=== PATIENT | male | born 1955 | race Caucasian/White ===

== ENCOUNTER → 2017-12-13 | Outpatient (CLI) | payer OTHER ==
[~2017-12-13] MED LIST: ACET325 PO; ACET500 PO; ALPR.25 PO; AMLO5 PO; Ativan1 MG PO; CALMAGZIN PO; CITA20 PO; ERYT500 PO; FERR325 PO; HYDACE10B PO; IRON150C PO; LEVSOD25 PO; LEVSOD50 PO; LORA1 PO; LOSHYD PO; LOTE.2OPSU; LOTE.5SUSP BOTHEYES; OXYC5 PO; Omeprazole20 M1; PRED10 PO; Prozac20 MG; SODCHL1 PO; SULI200 PO
[2017-12-13 18:38] LABS: BASOPHILS ABSOLUTE AUTO 0.06 K/mm3 (0.00-0.23); BASOPHILS PERCENT AUTO 1 % (0-2); EOSINOPHILS PERCENT AUTO 2 % (0-6); Hemoglobin 14.6 g/dL (13.5-17.5); IMMATURE GRAN ABSOLUTE AUTO 0.01 K/mm3 (0.00-0.10); IMMATURE GRAN PERCENT AUTO 0 % (0-1); LYMPHOCYTES ABSOLUTE AUTO 1.69 K/mm3 (0.84-5.20); LYMPHOCYTES PERCENT AUTO 25 % (21-46); MONOCYTES ABSOLUTE AUTO 0.54 K/mm3 (0.16-1.47); MONOCYTES PERCENT AUTO 8 % (4-13); Mean Corpuscular HGB 34.7 pg (26.0-34.0); Mean Corpuscular HGB Conc 36.5 g/dL (31.5-36.5); Mean Corpuscular Volume 95 fL (80-100); Mean Platelet Volume 9.4 fL (9.1-12.4); NEUTROPHILS ABSOLUTE AUTO 4.41 K/mm3 (1.96-9.15); NEUTROPHILS PERCENT AUTO 65 % (41-73); Platelet Count 212 K/mm3 (150-400); RDW Coefficient Variation 12.4 % (11.7-14.2); RDW Standard Deviation 43.2 fL (35.1-46.3); Red Blood Cell Count 4.21 M/mm3 (4.30-5.90); White Blood Cell Count 6.81 K/mm3 (4.00-11.30)
[2017-12-13 18:51] LABS: Albumin, Blood 4.3 g/dL (3.4-5.0); Bilirubin, Total 0.6 mg/dL (0.1-1.0); Bun/Creatinine Ratio 8.1 (12.0-20.0); Creatinine, Blood 1.61 mg/dL (0.60-1.20); Globulin, Blood 4.1 g/dL (2.2-4.0); Potassium, Blood 3.9 mmol/L (3.5-5.5); Total Protein, Blood 8.4 g/dL (6.4-8.2)
== END | disposition home or self-care (01) ==
LOC: LAB SHORT 18:35 → LAB EV 18:35
PROVIDERS: Physician Assistant
DX: R41.0 Disorientation, unspecified (principal)
CPT/HCPCS: 80053; 85025

== ENCOUNTER → 2018-01-22 | Outpatient (CLI) | payer OTHER ==
[2018-01-23 13:21] LABS: Stool Occult Bld Immuno 1 Negative (NEGATIVE); Stool Occult Bld Immuno 2 Negative (NEGATIVE); Stool Occult Bld Immuno 3 Negative (NEGATIVE)
== END | disposition home or self-care (01) ==
LOC: LAB SHORT 14:04 → LAB 14:04 → LAB FUT 01-18 10:05
PROVIDERS: Nurse Practitioner Family
DX: Z00.01 Encounter for general adult medical examination with abnormal findings (principal); Z12.11 Encounter for screening for malignant neoplasm of colon
CPT/HCPCS: G0328

== ENCOUNTER → 2018-02-27 | Outpatient (CLI) | payer OTHER ==
[2018-02-27 10:30] LABS: BASOPHILS ABSOLUTE AUTO 0.04 K/mm3 (0.00-0.23); BASOPHILS PERCENT AUTO 1 % (0-2); EOSINOPHILS ABSOLUTE AUTO 0.09 K/mm3 (0.00-0.68); EOSINOPHILS PERCENT AUTO 1 % (0-6); Hematocrit 39.9 % (37.0-53.0); Hemoglobin 14.7 g/dL (13.5-17.5); IMMATURE GRAN ABSOLUTE AUTO 0.02 K/mm3 (0.00-0.10); IMMATURE GRAN PERCENT AUTO 0 % (0-1); LYMPHOCYTES ABSOLUTE AUTO 1.17 K/mm3 (0.84-5.20); LYMPHOCYTES PERCENT AUTO 16 % (21-46); MONOCYTES ABSOLUTE AUTO 0.71 K/mm3 (0.16-1.47); MONOCYTES PERCENT AUTO 10 % (4-13); Mean Corpuscular HGB 35.7 pg (26.0-34.0); Mean Corpuscular HGB Conc 36.8 g/dL (31.5-36.5); Mean Corpuscular Volume 97 fL (80-100); Mean Platelet Volume 9.7 fL (9.1-12.4); NEUTROPHILS ABSOLUTE AUTO 5.47 K/mm3 (1.96-9.15); NEUTROPHILS PERCENT AUTO 73 % (41-73); Platelet Count 224 K/mm3 (150-400); RDW Standard Deviation 42.5 fL (35.1-46.3); Red Blood Cell Count 4.12 M/mm3 (4.30-5.90)
[2018-02-27 10:51] LABS: Albumin, Blood 3.9 g/dL (3.4-5.0); Albumin/Globulin Ratio 0.9 (0.8-1.8); Bilirubin, Total 0.7 mg/dL (0.1-1.0); Calcium, Blood 8.5 mg/dL (8.5-10.1); Creatinine, Blood 1.5 mg/dL (0.60-1.20); Globulin, Blood 4.2 g/dL (2.2-4.0); Potassium, Blood 4.1 mmol/L (3.5-5.5); Total Protein, Blood 8.1 g/dL (6.4-8.2); Uric Acid, Blood 7.6 mg/dL (3.5-7.2)
== END | disposition home or self-care (01) ==
LOC: LAB SHORT 10:26 → LAB EV 10:26
PROVIDERS: General Practice
DX: M10.9 Gout, unspecified (principal)
CPT/HCPCS: 80053; 84550; 85025; 85651

== ENCOUNTER → 2018-03-01 | Outpatient (CLI) | payer OTHER ==
[2018-03-02 14:29] LABS: Creatinine Urine 78.3 mg/dL (27.00-270.00); Uric Acid, Urine 20.3 mg/dL (7.5-49.5)
== END | disposition home or self-care (01) ==
LOC: LAB 12:32 → LAB SHORT 12:32
PROVIDERS: General Practice
DX: M10.9 Gout, unspecified (principal)
CPT/HCPCS: 81050; 82570; 84560

== ENCOUNTER 2020-11-16 20:40 | Inpatient (IN) | payer OTHER ==
[~2020-11-16] VITALS: Ht 180.3 cm; Wt 101.7 kg
[~2020-11-16 20:40] MED LIST changes: -LEVSOD50 PO; -LOTE.5SUSP BOTHEYES; +LOTEPREDNOL ETAB5 ML BOTHEYES
[2020-11-16 22:21] LABS: Source, Urine Clean Catch
[2020-11-16 22:23] LABS: Bilirubin, Urine Neg (Neg); Blood, Urine 5+ (Neg); Glucose Qualitative, Urine Neg (Neg); Ketones, Urine 2+ (Neg); Leukocyte Esterase, Urine Neg (Neg); Nitrite, Urine Neg (Neg); Protein, Urine 3+ (Neg); Urobilinogen, Urine NORM (Normal)
[2020-11-16 22:23] LABS: Alanine Aminotransfer (ALT/SGP 65 U/L (12-78); Albumin, Blood 3.5 g/dL (3.4-5.0); Alk Phos 144 U/L (50-136); Anion Gap 10 mmol/L (6-16); Aspartate Aminotrans (AST/SGOT 150 U/L (12-37); BASOPHILS ABSOLUTE AUTO 0.01 K/mm3 (0.00-0.23); BASOPHILS PERCENT AUTO 0 % (0-2); Bilirubin, Total 0.7 mg/dL (0.1-1.0); Blood Urea Nitrogen 18 mg/dL (8-24); Bun/Creatinine Ratio 12.5 (12.0-20.0); CO2, Blood 22 mmol/L (21-32); Calcium, Blood 7.3 mg/dL (8.5-10.1); Chloride, Blood 94 mmol/L (98-108); Creatinine, Blood 1.44 mg/dL (0.60-1.20); EOSINOPHILS ABSOLUTE AUTO 0.01 K/mm3 (0.00-0.68); EOSINOPHILS PERCENT AUTO 0 % (0-6); Globulin, Blood 3.5 g/dL (2.2-4.0); Glomerular Filtration Rate 49 (60-); Glucose, Blood 164 mg/dL (70-99); Magnesium, Blood 1.6 mg/dL (1.6-2.4); Potassium, Blood 3.2 mmol/L (3.5-5.5); RDW Coefficient Variation 11.8 % (11.7-14.2); RDW Standard Deviation 40.1 fL (35.1-46.3); Sodium, Blood 126 mmol/L (136-145); Troponin I 0.032 ng/mL (0.000-0.040); White Blood Cell Count 4.31 K/mm3 (4.00-11.30)
[2020-11-16 22:29] LABS: Appearance, Urine Clear (Clear); Color, Urine Yellow (P-Yellow)
[2020-11-16 22:31] LABS: Hematocrit 36.4 % (37.0-53.0); Hemoglobin 13.6 g/dL (13.5-17.5); IMMATURE GRAN ABSOLUTE AUTO 0.02 K/mm3 (0.00-0.10); IMMATURE GRAN PERCENT AUTO 1 % (0-1); LYMPHOCYTES ABSOLUTE AUTO 0.97 K/mm3 (0.84-5.20); LYMPHOCYTES PERCENT AUTO 23 % (21-46); MONOCYTES PERCENT AUTO 5 % (4-13); Mean Corpuscular HGB 35.2 pg (26.0-34.0); Mean Corpuscular HGB Conc 37.4 g/dL (31.5-36.5); Mean Corpuscular Volume 94 fL (80-100); Mean Platelet Volume 10.7 fL (9.1-12.4); NEUTROPHILS PERCENT AUTO 72 % (41-73); Platelet Count 94 K/mm3 (150-400); Red Blood Cell Count 3.86 M/mm3 (4.30-5.90)
[2020-11-16 22:36] LABS: Ethanol (Alcohol), Blood, Med <3 mg/dL
[2020-11-16 22:44] LABS: Amorphous Light (0-Heavy); Bacteria Not Seen /hpf; Squamous Epithelial Cells Not Seen /hpf (Few); White Blood Cells, Urine Not Seen /hpf (0-5)
[2020-11-16 22:54] LABS: U Amphetamine Screen Not Detected; U Barbituate Screen Not Detected; U Benzodiazapine Screen Not Detected; U Buprenorphine Screen Not Detected; U Cannabinoids Screen Not Detected; U Cocaine Screen Not Detected; U Methadone Screen Not Detected; U Methamphetamine Screen Not Detected; U Opiates Screen Not Detected; U Oxycodone Screen Not Detected; U Phencyclidine Screen Not Detected; U Propoxyphene Screen Not Detected
[2020-11-17 06:15] LABS: Hematocrit 38.2 % (37.0-53.0); Hemoglobin 14.3 g/dL (13.5-17.5); Mean Corpuscular HGB 34.7 pg (26.0-34.0); Mean Corpuscular HGB Conc 37.4 g/dL (31.5-36.5); Mean Corpuscular Volume 93 fL (80-100); Mean Platelet Volume 10.3 fL (9.1-12.4); Platelet Count 99 K/mm3 (150-400); RDW Coefficient Variation 11.8 % (11.7-14.2); RDW Standard Deviation 39.8 fL (35.1-46.3); Red Blood Cell Count 4.12 M/mm3 (4.30-5.90); White Blood Cell Count 6.22 K/mm3 (4.00-11.30)
[2020-11-17 06:39] LABS: BAND PERCENT MAN 16 % (0-8); BASOPHILS PERCENT MAN 0 % (0-2); EOSINOPHILS PERCENT MAN 0 % (0-6); LYMPHOCYTES ABSOLUTE MAN 0.31 K/mm3 (0.84-5.20); LYMPHOCYTES PERCENT MAN 5 % (21-46); MONOCYTES ABSOLUTE MAN 0.37 K/mm3 (0.16-1.47); MONOCYTES PERCENT MAN 6 % (4-13); NEUTROPHILS ABSOLUTE MAN 5.53 K/mm3 (1.96-9.15); SEG NEUTROPHILS PERCENT MAN 73 % (41-73); TOTAL CELLS COUNTED 100
[2020-11-17 06:47] LABS: Albumin, Blood 3.4 g/dL (3.4-5.0); Bilirubin, Total 0.7 mg/dL (0.1-1.0); Bun/Creatinine Ratio 11.3 (12.0-20.0); Creatinine, Blood 1.33 mg/dL (0.60-1.20); Globulin, Blood 3.5 g/dL (2.2-4.0); Magnesium, Blood 2.1 mg/dL (1.6-2.4); Phosphorus, Blood 1.9 mg/dL (2.5-4.9); Potassium, Blood 3.7 mmol/L (3.5-5.5); Total Protein, Blood 6.9 g/dL (6.4-8.2)
[2020-11-17 12:48] LABS: Source, Urine Clean Catch
[2020-11-17 12:53] LABS: Appearance, Urine Hazy (Clear); Bilirubin, Urine Neg (Neg); Blood, Urine 5+ (Neg); Color, Urine Amber (P-Yellow); Glucose Qualitative, Urine Neg (Neg); Ketones, Urine 2+ (Neg); Leukocyte Esterase, Urine Neg (Neg); Nitrite, Urine Neg (Neg); Protein, Urine 3+ (Neg); Urobilinogen, Urine NORM (Normal); pH, Urine 6.5 (5.0-8.0)
[2020-11-17 13:02] LABS: Bacteria Not Seen /hpf; Red Blood Cells, Urine TNTC /hpf (0-2); Renal Epithelial Rare /hpf (0-Rare); Squamous Epithelial Cells Rare /hpf (Few); Transitional Epithelial Cells Rare /hpf (0-Rare)
--- NOTE | 2020-11-17 20:22 | NUR ---
SHIFT SUMMARY: PATIENT ALERT; AGITATED; CONFUSED; DIFFICULT TO REDIRECT. DONAL VEST & BILATERAL SOFT WRIST RESTRAINTS IN PLACE R/T AGITATION & CONFUSION + PULLED IV X2. CASAS PLACED FOR URINARY RETENTION; PT TOLERATED WELL. REMDESEVIR, ABX, & ELECTROLYTE REPLACEMENT CONTINUING. REPORT GIVEN TO ONCOMING RN.
--- NOTE | 2020-11-18 06:36 | NUR ---
SHIFT SUMMARRY REMAINS RESTLES AND AGITATED CONSTANTLY ATTEMPTIN TO PULL OUT CASAS. PRN BEBEDRY GIVEN HIM WITH GOOD EFFECTS. FETINYOL GIVING FOR PAIN WITH GOOD EFFECTS
--- NOTE | 2020-11-18 07:35 | NUR ---
Daughters were at bedside last evening, one daughter stayed to assist because patient was so restless, even with restraints. Daughter seemed to assist with keeping him more calm. Pt has started to have some loose stool. Daughter had multiple questions and expressed concerns about meds patient is receiving. Family does not want patient to receive REMDESIVIER. Night hospitalist Dr. Jiménez wanted John DR to make med decisions at this time. Daughter requests that all new meds be cleared by family before ordered by doctor. Daughter is concerned about pt nutrition, wants IV nutrition or feeding tube due to NPO status. Pt has a very sensitive stomache. Teaching attempted about meds being ordered, nutrition etc.
[2020-11-18 08:47] LABS: Hematocrit 42.4 % (37.0-53.0); Hemoglobin 15.9 g/dL (13.5-17.5); Mean Corpuscular HGB 34.5 pg (26.0-34.0); Mean Corpuscular HGB Conc 37.5 g/dL (31.5-36.5); Mean Corpuscular Volume 92 fL (80-100); Mean Platelet Volume 10.6 fL (9.1-12.4); Platelet Count 96 K/mm3 (150-400); RDW Coefficient Variation 11.9 % (11.7-14.2); RDW Standard Deviation 40.4 fL (35.1-46.3); Red Blood Cell Count 4.61 M/mm3 (4.30-5.90); White Blood Cell Count 12.82 K/mm3 (4.00-11.30)
[2020-11-18 08:53] LABS: Bun/Creatinine Ratio 14.6 (12.0-20.0); Calcium, Blood 7.9 mg/dL (8.5-10.1); Creatinine, Blood 1.3 mg/dL (0.60-1.20); Potassium, Blood 4.4 mmol/L (3.5-5.5)
[2020-11-18 09:38] LABS: BAND PERCENT MAN 16 % (0-8); BASOPHILS PERCENT MAN 0 % (0-2); EOSINOPHILS PERCENT MAN 0 % (0-6); LYMPHOCYTES ABSOLUTE MAN 0.89 K/mm3 (0.84-5.20); LYMPHOCYTES PERCENT MAN 7 % (21-46); MONOCYTES ABSOLUTE MAN 0.12 K/mm3 (0.16-1.47); MONOCYTES PERCENT MAN 1 % (4-13); MYELOCYTE ABSOLUTE MAN 0.12 K/mm3 (0.00-0.00); MYELOCYTE PERCENT MAN 1 % (0-0); NEUTROPHILS ABSOLUTE MAN 11.66 K/mm3 (1.96-9.15); SEG NEUTROPHILS PERCENT MAN 75 % (41-73); TOTAL CELLS COUNTED 100
--- NOTE | 2020-11-18 15:38 | NUR ---
attemtped follow up daughters left. will see if [facility] has polst. pt kps score is 30%.
--- NOTE | 2020-11-18 17:19 | NUR ---
PATIENT A/OX4, SLOW TO RESPOND AT TIMES. RESTRATINTS REMOVED TODAY AT 1200 AND DAUGHTER AT BEDSIDE ASSISTING WITH CARE. VSS, ON 4LO2 TO MAINTAIN SATS. PRODUCTIVE COUGH, SMALL AMOUNT OF BROWN SPUTUM. UP WITH SBA. CASAS REMOVED THIS AFTERNOON AT 1530 AT PATIENT REQUEST. PATIENT NOW IS FEELING LIKE HE HAS TO URINATE EVERY 15 MINUTES AND ONLY GOES 50-100 ML'S AT A TIMES. WILL MONITOR AND BLADDER SCAN IF NEEDED. FALL PRECAUTIONS IN PLACE.
--- NOTE | 2020-11-19 05:25 | NUR ---
SHIFT SUMMARY AOX3-SELF, PLACE, DATE. FORGETFUL OF SITUATION. CONFUSED, IMPULSIVE & RESTLESS. SETS OFF BED ALARM FREQUENTLY TRYING TO GET OOB W/O HELP & REMOVES NC. VSS. SPO2 >90% ON 4L O2. DENIES SOB, N/V. REPORTS PAIN IN THROAT, INFORMED HOSPITALIST & HE ORDERED ROBITUSSIN-GAVE MED & SOME HOT TEA, NO FURTHER COMPLAINTS. GAVE SCHEDULED IV BENEDRYL & PT COULDNT FALL ASLEEP, HOSPITALIST ORDERED ANOTHER 25MG BENEDRYL. PT STILL RESTLESS, IMPULSIVE & UNABLE TO FALL ASLEEP 1.5 HR LATER. INFORMED HOSPITALIST & HE ORDERED 25MG TRAZADONE, PT HAS RESTED BETTER SINCE RECIEVING THIS MED. DAUGHTER @BEDSIDE T/O NIGHT UNTIL 0500 THIS AM. DAUGHTER DIDNT WANT PT PLACED IN DONAL VEST, STATED IT AGITATED PT MORE. CALL LIGHT & BED ALARM IN PLACE.
[2020-11-19 10:00] LABS: Hematocrit 39.4 % (37.0-53.0); Hemoglobin 14.7 g/dL (13.5-17.5); Mean Corpuscular HGB 34.6 pg (26.0-34.0); Mean Corpuscular HGB Conc 37.3 g/dL (31.5-36.5); Mean Corpuscular Volume 93 fL (80-100); Mean Platelet Volume 10.4 fL (9.1-12.4); Platelet Count 129 K/mm3 (150-400); RDW Coefficient Variation 12.2 % (11.7-14.2); RDW Standard Deviation 41.5 fL (35.1-46.3); Red Blood Cell Count 4.25 M/mm3 (4.30-5.90); White Blood Cell Count 14.14 K/mm3 (4.00-11.30)
[2020-11-19 10:14] LABS: Albumin/Globulin Ratio 0.8 (0.8-1.8); Bilirubin, Total 0.9 mg/dL (0.1-1.0); Bun/Creatinine Ratio 21.6 (12.0-20.0); Calcium, Blood 8.1 mg/dL (8.5-10.1); Creatinine, Blood 1.53 mg/dL (0.60-1.20); Globulin, Blood 3.6 g/dL (2.2-4.0); Potassium, Blood 3.8 mmol/L (3.5-5.5); Total Protein, Blood 6.6 g/dL (6.4-8.2)
[2020-11-19 10:51] LABS: BAND PERCENT MAN 5 % (0-8); BASOPHILS PERCENT MAN 0 % (0-2); EOSINOPHILS PERCENT MAN 0 % (0-6); LYMPHOCYTES ABSOLUTE MAN 1.27 K/mm3 (0.84-5.20); LYMPHOCYTES PERCENT MAN 9 % (21-46); MONOCYTES PERCENT MAN 5 % (4-13); NEUTROPHILS ABSOLUTE MAN 12.16 K/mm3 (1.96-9.15); SEG NEUTROPHILS PERCENT MAN 81 % (41-73); TOTAL CELLS COUNTED 100
[2020-11-19 12:00] LABS: Vancomycin, Trough 25.3 ug/mL (5.0-10.0)
[2020-11-19 15:17] LABS: Source, Urine Clean Catch
[2020-11-19 15:32] LABS: Appearance, Urine Clear (Clear); Bilirubin, Urine Neg (Neg); Blood, Urine 5+ (Neg); Color, Urine Yellow (P-Yellow); Glucose Qualitative, Urine 1+ (Neg); Ketones, Urine Neg (Neg); Leukocyte Esterase, Urine Neg (Neg); Nitrite, Urine Neg (Neg); Protein, Urine 3+ (Neg); Urobilinogen, Urine NORM (Normal)
[2020-11-19 17:06] LABS: Red Blood Cells, Urine 0-2 /hpf (0-2); White Blood Cells, Urine 0-2 /hpf (0-5)
[2020-11-19 17:07] LABS: Squamous Epithelial Cells Few /hpf (Few)
[2020-11-19 17:08] LABS: Amorphous Light (0-Heavy); Bacteria Few /hpf
[2020-11-19 17:09] LABS: RBC Cast 0-2 /lpf (0)
--- NOTE | 2020-11-19 17:25 | NUR ---
ADMIT: 11/16/20 DISCHARGE: TBD DX: ACUTE HYPONATREMIC ENCEPHALOPATHY & COVID19 CC: [facility] [facility]ENCE: [address] [id number] NEXT OF KIN/CONTACTS: LISA COSBY, CHILD - [phone] PRIOR TO ADMIT - DME: NONE CHRONIC CARE MANAGEMENT: NONE HHC/HOSPICE: NONE UPDATE 11/19/20: PER CHART REVIEW, PT. HAS BEEN CONFUSED, IMPULSIVE, AND RESTLESS. NOT YET APPROPRIATE FOR DISCHARGE THOUGH LABS IMPROVING AND OVERALL CONDITION SEEMS TO BE IMPROVING. NOTES OF RESTRAINTS IN THE CHART DUE CONCERN FOR IMPULSIVE BEHAVIOR AND FALL RISK. NO CONCERN FOR BEHAVIORAL ISSUES NOTED. LAST NOTE OF RESTRAINT USE IS FROM 11/18/20. AT THIS TIME, ANTICIPATE NEEDS AT TIME OF DISCHARGE TO INCLUDE PT/OT EVAL., POTENTIAL FOR SNF (COVID UNIT), LONG-TERM CARE PLANNING (ASSISTED LIVING VS. HH/[facility]), HOSPITAL F/U WITHIN 5-7 DAYS. PT. IS NOTED TO HAVE ISSUES WITH NON-COMPLIANCE IN MANAGING HIS MEDICATION. AT MINIMUM PT. WILL NEED ASSISTANCE WITH MEDICATION MANAGEMENT AT TIME OF DISCHARGE.
--- NOTE | 2020-11-19 18:32 | NUR ---
PT IS UP IN BED AND STANDBY ASS. USES THE BEDSIDE COMMODE. PT FAMILY IN ROOM. FAMILY CONCERNS ABOUT POSSIBLE UTI AND CONSULTED DR TORREZ ABOUT CONCERNS AND FLOMAX AND BLADDER SCAN WAS ORDERED. 265 REMAINED IN THE BLADDER POST VOID. PT IS CONSTANTLY UP AND DOWN WITHOUT USING THE CALL LIGHT. HE HAS BEEN REMINDED TO CALL FOR HELP, BUT HE REMAINS RESTLESS.
[2020-11-20 05:49] LABS: BASOPHILS ABSOLUTE AUTO 0.04 K/mm3 (0.00-0.23); BASOPHILS PERCENT AUTO 0 % (0-2); EOSINOPHILS ABSOLUTE AUTO 0.04 K/mm3 (0.00-0.68); EOSINOPHILS PERCENT AUTO 0 % (0-6); Hematocrit 38.9 % (37.0-53.0); Hemoglobin 14.2 g/dL (13.5-17.5); IMMATURE GRAN ABSOLUTE AUTO 0.11 K/mm3 (0.00-0.10); IMMATURE GRAN PERCENT AUTO 1 % (0-1); LYMPHOCYTES ABSOLUTE AUTO 0.61 K/mm3 (0.84-5.20); LYMPHOCYTES PERCENT AUTO 4 % (21-46); MONOCYTES ABSOLUTE AUTO 0.88 K/mm3 (0.16-1.47); MONOCYTES PERCENT AUTO 6 % (4-13); Mean Corpuscular HGB 34.5 pg (26.0-34.0); Mean Corpuscular HGB Conc 36.5 g/dL (31.5-36.5); Mean Corpuscular Volume 95 fL (80-100); Mean Platelet Volume 9.8 fL (9.1-12.4); NEUTROPHILS ABSOLUTE AUTO 12.84 K/mm3 (1.96-9.15); NEUTROPHILS PERCENT AUTO 88 % (41-73); Platelet Count 166 K/mm3 (150-400); RDW Coefficient Variation 12.4 % (11.7-14.2); RDW Standard Deviation 43.1 fL (35.1-46.3); Red Blood Cell Count 4.11 M/mm3 (4.30-5.90); White Blood Cell Count 14.52 K/mm3 (4.00-11.30)
--- NOTE | 2020-11-20 06:08 | NUR ---
SHIFT SUMMARY AOX3-SELF, HOSPITAL, MONTH, YR, FOLLOWING DIRECTIONS. VERY FORGETFUL & IMPULSIVE. REPORTS FEELING ANXIOUS & RESTLESS. GAVE XANAX & BENEDRYL PER EMAR & PT RESTED WELL FOR ROUGHLY 2HRS MAX TONIGHT. OTHERWISE PT HAS BEEN UP SETTING OFF BED ALARM EVERY 15-20MIN. VSS. TITRATED O2 DOWN TO 2L & SPO2 >90%. E/U RESP. DENIES SOB. COLLECTED SPUTUM SAMPLE. PT REPORTING THE NEED TO VOID FREQUENTLY, HAS MELISSA FOUL SMELLING URINE. MOANING & REPORTS "ACHINESS ALLOVER" MEDICATED 1X c 50MCG FENTANYL & PT ABLE TO REST COMFORTABLY. CALL LIGHT & BED ALARM IN PLACE.
[2020-11-20 06:21] LABS: Albumin, Blood 3.2 g/dL (3.4-5.0); Albumin/Globulin Ratio 0.9 (0.8-1.8); Bilirubin, Total 1.1 mg/dL (0.1-1.0); Bun/Creatinine Ratio 23.5 (12.0-20.0); Calcium, Blood 7.7 mg/dL (8.5-10.1); Creatinine, Blood 1.62 mg/dL (0.60-1.20); Globulin, Blood 3.6 g/dL (2.2-4.0); Potassium, Blood 3.8 mmol/L (3.5-5.5); Total Protein, Blood 6.8 g/dL (6.4-8.2)
--- NOTE | 2020-11-20 13:57 | NUR ---
returned call to daughter, paul, just wanted to know how he was doing, planning on comming in and bringing him a change of clothes
--- NOTE | 2020-11-20 14:23 | NUR ---
stood up and pulled IV, stated he was unware of it happening, attempted to start new one in r forearm, cn says she will try with an ultrasound, daughter in to visit and encourage
--- NOTE | 2020-11-20 21:15 | NUR ---
Review with daughter plan of care and strategies to keep him hydrated. Pt does not have poa or advance directive, review a plan for as he ages. discussed his disease process and life plan. will follow up with daughter pt high risk for readmission.
--- NOTE | 2020-11-21 04:23 | NUR ---
SHIFT SUMMARY: PT STILL ANXIOUS AND ATTEMPTING TO GET OUT OF BED WIHTOUT HELP. ANXIETY MEDS GIVEN, PT STILL GETTING UP. PT UNABLE TO FALL ASLEEP AND STAY ASLEEP. PT HAS STRONGSPONTANEOUS STRONG COUGH, COUGH MEDICINE GIVEN. PT ALERT AND ORIENTED X 2, VITALS STABLE.
[2020-11-21 05:37] LABS: Hematocrit 37.3 % (37.0-53.0); Hemoglobin 13.6 g/dL (13.5-17.5); Mean Corpuscular HGB 34.4 pg (26.0-34.0); Mean Corpuscular HGB Conc 36.5 g/dL (31.5-36.5); Mean Corpuscular Volume 94 fL (80-100); Mean Platelet Volume 9.5 fL (9.1-12.4); Platelet Count 208 K/mm3 (150-400); RDW Coefficient Variation 12.2 % (11.7-14.2); RDW Standard Deviation 43.5 fL (35.1-46.3); Red Blood Cell Count 3.95 M/mm3 (4.30-5.90); White Blood Cell Count 10.81 K/mm3 (4.00-11.30)
[2020-11-21 06:18] LABS: BAND PERCENT MAN 2 % (0-8); BASOPHILS PERCENT MAN 0 % (0-2); EOSINOPHILS PERCENT MAN 0 % (0-6); LYMPHOCYTES ABSOLUTE MAN 0.32 K/mm3 (0.84-5.20); LYMPHOCYTES PERCENT MAN 3 % (21-46); MONOCYTES ABSOLUTE MAN 0.75 K/mm3 (0.16-1.47); MONOCYTES PERCENT MAN 7 % (4-13); NEUTROPHILS ABSOLUTE MAN 9.72 K/mm3 (1.96-9.15); SEG NEUTROPHILS PERCENT MAN 88 % (41-73); TOTAL CELLS COUNTED 100
[2020-11-21 06:31] LABS: Alanine Aminotransfer (ALT/SGP 234 U/L (12-78); Albumin, Blood 3.1 g/dL (3.4-5.0); Albumin/Globulin Ratio 0.8 (0.8-1.8); Alk Phos 161 U/L (50-136); Anion Gap 9 mmol/L (6-16); Aspartate Aminotrans (AST/SGOT 519 U/L (12-37); Blood Urea Nitrogen 39 mg/dL (8-24); Bun/Creatinine Ratio 24.4 (12.0-20.0); CO2, Blood 20 mmol/L (21-32); Calcium, Blood 7.9 mg/dL (8.5-10.1); Chloride, Blood 108 mmol/L (98-108); Globulin, Blood 3.7 g/dL (2.2-4.0); Glomerular Filtration Rate 44 (60-); Glucose, Blood 159 mg/dL (70-99); Potassium, Blood 3.6 mmol/L (3.5-5.5); Sodium, Blood 137 mmol/L (136-145); Total Protein, Blood 6.8 g/dL (6.4-8.2); Vancomycin, Trough 15.6 ug/mL (5.0-10.0)
[2020-11-21] MEDS ORDERED: ASCO500 PO (14:42)
[2020-11-21] MEDS ORDERED: HURRICAINE ONE1 EACH TOP (14:43)
[2020-11-21] MEDS ORDERED: Q-Tussin100 MG/5 M PO (14:45)
[2020-11-21] MEDS ORDERED: TAMS.4ER PO (14:46)
[2020-11-21] MEDS ORDERED: DOXY100 PO (14:48)
[2020-11-21] MEDS ORDERED: VITAMIN D31000 UNI1 PO (14:48)
[2020-11-21] MEDS ORDERED: Prednisone10 MG PO (14:49)
== END 2020-11-21 15:45 | disposition home health service (06) | DRG 177 ==
LOC: ER 20:40 → MEDS 23:58
PROVIDERS: Emergency Medicine; Family Medicine; Internal Medicine; Pharmacist; ADMIT Internal Medicine
PROC: 8E0ZXY6 Isolation (ICD-10-PCS; principal; 2020-11-16)
PROC: XW033E5 Introduction of Remdesivir Anti-infective into Peripheral Vein, Percutaneous Approach, New Technology Group 5 (ICD-10-PCS; 2020-11-17)
DX: U07.1 COVID-19 (principal); A41.89 Other specified sepsis; J12.82 Pneumonia due to coronavirus disease 2019; G92 Toxic encephalopathy; J96.01 Acute respiratory failure with hypoxia; E87.1 Hypo-osmolality and hyponatremia; N17.9 Acute kidney failure, unspecified; N13.8 Other obstructive and reflux uropathy; E83.51 Hypocalcemia; E87.6 Hypokalemia; E86.0 Dehydration; R74.01 Elevation of levels of liver transaminase levels; I12.9 Hypertensive chronic kidney disease with stage 1 through stage 4 chronic kidney disease, or unspecified chronic kidney disease; N18.30 Chronic kidney disease, stage 3 unspecified; N40.1 Benign prostatic hyperplasia with lower urinary tract symptoms; D69.59 Other secondary thrombocytopenia; E83.39 Other disorders of phosphorus metabolism; Z68.29 Body mass index [BMI] 29.0-29.9, adult; Z78.1 Physical restraint status; E03.9 Hypothyroidism, unspecified; F41.9 Anxiety disorder, unspecified; K21.9 Gastro-esophageal reflux disease without esophagitis; F32.9 Major depressive disorder, single episode, unspecified; E66.9 Obesity, unspecified; M10.9 Gout, unspecified; R33.8 Other retention of urine; K76.0 Fatty (change of) liver, not elsewhere classified; Z98.1 Arthrodesis status; Z88.5 Allergy status to narcotic agent; Z88.0 Allergy status to penicillin; Z91.018 Allergy to other foods; Z98.52 Vasectomy status; Z88.8 Allergy status to other drugs, medicaments and biological substances; Z79.899 Other long term (current) drug therapy; Z91.19 Patient's noncompliance with other medical treatment and regimen
CPT/HCPCS: 36415; 70450; 71045; 76705; 76770; 80048; 80053; 80202; 81001; 83605; 83735; 84100; 84145; 84443; 84484; 85025; 87040; 87070; 87205; 93005; 93010; 96365; 96366; 96375; 97116; 97162; 97166; 97530; 97535; 99285-25; A9270; G0480; J0360; J0692; J1200; J1630; J1650; J2060; J2920; J3010; J3370; J3475; J3480; J7030; J7050; J7060

== ENCOUNTER 2021-04-07 15:34 | Inpatient (IN) | payer MEDICARE, OTHER ==
[~2021-04-07] VITALS: Ht 177.8 cm; Wt 98.5 kg
[~2021-04-07 15:34] MED LIST changes: +ASCO500 PO; +DOXY100 PO; -FERR325 PO; +FERSU300 PO; +HURRICAINE ONE1 EACH TOP; +Prednisone10 MG PO; +Q-Tussin100 MG/5 M PO; +TAMS.4ER PO; +VITAMIN D31000 UNI1 PO
[2021-04-07 15:45] LABS: Calcium, Ionized (POC) 1.01 mmol/L (1.10-1.46); Chloride (POC) 101 mmol/L (98-108); Creatinine (POC) 1.8 mg/dL (0.8-1.3); Glucose (ISTAT POC) 133 mg/dL (70-99); Hemoglobin (POC) 13.9 g/dL (13.5-17.5); Potassium (POC) 3.4 mmol/L (3.5-5.5); Sodium (POC) 135 mmol/L (135-148); Total CO2 (POC) 20 mmol/L (21-32)
[2021-04-07 16:06] LABS: BASOPHILS ABSOLUTE AUTO 0.09 K/mm3 (0.00-0.23); BASOPHILS PERCENT AUTO 1 % (0-2); EOSINOPHILS ABSOLUTE AUTO 0.21 K/mm3 (0.00-0.68); EOSINOPHILS PERCENT AUTO 2 % (0-6); Hematocrit 40.4 % (37.0-53.0); Hemoglobin 14.7 g/dL (13.5-17.5); IMMATURE GRAN ABSOLUTE AUTO 0.05 K/mm3 (0.00-0.10); IMMATURE GRAN PERCENT AUTO 0 % (0-1); LYMPHOCYTES ABSOLUTE AUTO 4.65 K/mm3 (0.84-5.20); LYMPHOCYTES PERCENT AUTO 38 % (21-46); MONOCYTES ABSOLUTE AUTO 1.08 K/mm3 (0.16-1.47); MONOCYTES PERCENT AUTO 9 % (4-13); Mean Corpuscular HGB 34.5 pg (26.0-34.0); Mean Corpuscular HGB Conc 36.4 g/dL (31.5-36.5); Mean Corpuscular Volume 95 fL (80-100); Mean Platelet Volume 9.8 fL (9.1-12.4); NEUTROPHILS ABSOLUTE AUTO 6.31 K/mm3 (1.96-9.15); NEUTROPHILS PERCENT AUTO 51 % (41-73); Platelet Count 245 K/mm3 (150-400); RDW Coefficient Variation 11.7 % (11.7-14.2); RDW Standard Deviation 40.3 fL (35.1-46.3); Red Blood Cell Count 4.26 M/mm3 (4.30-5.90); White Blood Cell Count 12.39 K/mm3 (4.00-11.30)
[2021-04-07 16:22] LABS: Alanine Aminotransfer (ALT/SGP 38 U/L (12-78); Albumin, Blood 4.3 g/dL (3.4-5.0); Albumin/Globulin Ratio 1.1 (0.8-1.8); Alk Phos 100 U/L (50-136); Anion Gap 15 mmol/L (6-16); Aspartate Aminotrans (AST/SGOT 31 U/L (12-37); Bilirubin, Total 0.5 mg/dL (0.1-1.0); Blood Urea Nitrogen 17 mg/dL (8-24); Bun/Creatinine Ratio 9.9 (12.0-20.0); CO2, Blood 21 mmol/L (21-32); Calcium, Blood 9.2 mg/dL (8.5-10.1); Chloride, Blood 99 mmol/L (98-108); Creatinine, Blood 1.71 mg/dL (0.60-1.20); Globulin, Blood 3.9 g/dL (2.2-4.0); Glomerular Filtration Rate 40 (60-); Glucose, Blood 140 mg/dL (70-99); Potassium, Blood 3.3 mmol/L (3.5-5.5); Sodium, Blood 135 mmol/L (136-145); Total Protein, Blood 8.2 g/dL (6.4-8.2); Troponin I <0.015 ng/mL (0.000-0.040)
[2021-04-07] MEDS ORDERED: OMEP20ER PO (20:50)
[2021-04-07] MEDS ORDERED: THYROID30 MG PO (20:51)
[2021-04-07] MEDS ORDERED: Ketoconazole120 ML TOP (20:52)
[2021-04-07 21:50] LABS: Prolactin 8.1 ng/mL (2.5-17.4)
[2021-04-07 21:58] LABS: Troponin I 5.43 ng/mL (0.000-0.040)
--- NOTE | 2021-04-08 00:45 | NUR ---
PT WAS ADMITTED TO ROOM 324 FROM THE ED. SHORTLY AFTER HIS ARRIVAL TO THE MEDICAL FLOOR IT WAS REPORTED THAT PT'S TROPONIN LEVEL HAD GONE FROM 1.390-5.43. HOSPITALIST WAS NOTIFIED AND STATED THAT THEY WERE FAMILIAR WITH THE PATIENT AND HAD ALREADY CONFERED WITH ED DOC.
[2021-04-08 04:54] LABS: BASOPHILS ABSOLUTE AUTO 0.05 K/mm3 (0.00-0.23); BASOPHILS PERCENT AUTO 1 % (0-2); EOSINOPHILS ABSOLUTE AUTO 0.06 K/mm3 (0.00-0.68); EOSINOPHILS PERCENT AUTO 1 % (0-6); Hematocrit 41.6 % (37.0-53.0); Hemoglobin 14.9 g/dL (13.5-17.5); IMMATURE GRAN ABSOLUTE AUTO 0.02 K/mm3 (0.00-0.10); IMMATURE GRAN PERCENT AUTO 0 % (0-1); LYMPHOCYTES ABSOLUTE AUTO 1.74 K/mm3 (0.84-5.20); LYMPHOCYTES PERCENT AUTO 18 % (21-46); MONOCYTES ABSOLUTE AUTO 0.91 K/mm3 (0.16-1.47); MONOCYTES PERCENT AUTO 10 % (4-13); Mean Corpuscular HGB 34.7 pg (26.0-34.0); Mean Corpuscular HGB Conc 35.8 g/dL (31.5-36.5); Mean Corpuscular Volume 97 fL (80-100); Mean Platelet Volume 9.7 fL (9.1-12.4); NEUTROPHILS ABSOLUTE AUTO 6.72 K/mm3 (1.96-9.15); NEUTROPHILS PERCENT AUTO 71 % (41-73); Platelet Count 189 K/mm3 (150-400); RDW Coefficient Variation 11.9 % (11.7-14.2); RDW Standard Deviation 42.4 fL (35.1-46.3)
[2021-04-08 05:31] LABS: Albumin, Blood 3.9 g/dL (3.4-5.0); Albumin/Globulin Ratio 1.1 (0.8-1.8); Bilirubin, Total 0.6 mg/dL (0.1-1.0); Bun/Creatinine Ratio 9.5 (12.0-20.0); Calcium, Blood 8.6 mg/dL (8.5-10.1); Creatinine, Blood 1.47 mg/dL (0.60-1.20); Globulin, Blood 3.7 g/dL (2.2-4.0); Potassium, Blood 3.8 mmol/L (3.5-5.5); Thyroid Stimulating Hormone 7.33 uIU/mL (0.360-4.800); Total Protein, Blood 7.6 g/dL (6.4-8.2)
[2021-04-08 05:53] LABS: Troponin I 4.56 ng/mL (0.000-0.040)
[2021-04-08 08:43] LABS: Prothrombin Time Results 10.5 Sec (9.7-11.5)
--- NOTE | 2021-04-08 09:56 | NUR ---
echocardiogram complete
[2021-04-08 09:58] LABS: SARS-Cov-2 (COVID-19) PCR, MMC NEGATIVE (NEGATIVE)
--- NOTE | 2021-04-08 12:24 | NUR ---
PT TRANSFER PT TAKEN DOWN FOR HEART CATH PROCEEDURE. PT TO TRANSFER TO PCU-16 POST PROCEEDURE. REPORT CALLED TO CREDIT VERIFIER. PT A/O X4 INDEPENDENT IN ROOM. ON RA, TAKES MEDS WHOLE. TRANSPORTED DOWN IN WHEELCHAIR, ABLE TO MOVE SELF FROM BED TO WHEELCHAIR. TELE BOX VERIFIED WITH HIGH RISK OB WITH A SR AT 69. ALL PERSONAL BELONGINGS TRANSPORTED DOWN TO ROOM FOR PT VIA NURSE.
--- NOTE | 2021-04-08 13:09 | NUR ---
Patient is lying in bed and alert. Pt immediately tells me about the events that led to his hospitalization and the angiogram that has already taken place. Pt says that he was given a choice between a stent or open heart surgery. Pt states that he is anxious about both options. I try to help talk through some of his fears and encourage him to trust the medical advice given. We also talk at length about his Denominational jayme and how to connect to God in such a way as to have peace in the midst of challenging circumstances. Pt is easily encouraged by discussion centered around God, the Bible and family. We also explore sources of meaning and how to know the best paths to take in life. I normalize pt's experience and provide therapeutic listening, gentle litigation counsel and prayer. Patient responds well and shows signs of increased peace and clarity. I will continue to remain available to patient and family.
[2021-04-08 14:38] LABS: U Amphetamine Screen Not Detected; U Barbituate Screen Not Detected; U Benzodiazapine Screen Not Detected; U Buprenorphine Screen Not Detected; U Cannabinoids Screen Not Detected; U Cocaine Screen Not Detected; U Methadone Screen Not Detected; U Methamphetamine Screen Not Detected; U Opiates Screen Not Detected; U Phencyclidine Screen Not Detected
[2021-04-08 14:39] LABS: U Oxycodone Screen Not Detected; U Propoxyphene Screen Not Detected
--- NOTE | 2021-04-08 16:45 | NUR ---
TR band removed from right wrist. NO active bleeding, no swelling, only some residual blood under the TR band. Bruising noted around the insertion site, puncture he and bruise extending in approx area size of a quarter. No pain, no numbness, per pt. Capillary refill WNL. Area was cleansed with chlorihexidine, dried with gauze, and clear tegederm dressing was applied over the area. White immobilizer board placed to inhibit movement of wrist, and pt was re-educated as to the activity restrictions of the right wrist/hand/arm at this time. He verbalized understanding.
--- NOTE | 2021-04-08 18:11 | NUR ---
PT SUMMARY: PT POST ANGIO AT NOON [facility] MEDICAL FLOOR RECEIVED REPORT FROM BAILEE PALUMBO. NO INTERVENTION DONE TODAY PT HAD MULTIVESSEL DSED, DR ROJO DISCUSSED PLAN WITH THE PT AND PT AGREED TO PROCEED WITH STENT PLACEMENT VS OPEN HEART SURGERY. PT TO BE NPO AFTER MIDNIGHT HEPARIN GTT STARTED AT 15U/KG/HR. RIGHT RADIAL SITE WITH CLEAR DRESSING CDI, NO HEMATOMA AROUND THE SITE. VITALS HRR SINUS WITH PVC'S AT 70S, BP SYSTOLIC ELEVATED 160-180'S PT STARTED ON LISINOPRIL PO ONE TIME DOSE OF METOPROLOL 25MG PO GIVEN WELL BP SYSTOLIC STAYED ON THE 150-160'S FOR NOW. PT DENIES ANY CHEST PAIN/SOB, SATS ABOVE 95%ONRA, AFEBRILE. ALERT AND ORIENTED X4, INDEPENDENT IN THE ROOM. NO OTHER ISSUES ENCOUNTERED, PT ABLE TO MAKE NEEDS KNOWN, CALLS APPROPRIATELY WILL REPORT TO ONCOMING SHIFT
--- NOTE | 2021-04-08 22:37 | NUR ---
R RADIAL SITE HAD RECOVERED WELL, BUT IS OOZING SOME UNDER TEGADERM. NOTHING OF TOO CONCERN OR ACTIVE BLEED, BUT RN DID REMOVE THE TEGADERM, PLACED ABSORBANT PATCH, TEGADERM, AND THEN LIGHT COBAND WRAPPING FOR SOME COMPRESSION TO SLOW THE OOZING. ON HEP GTT, SO LIKELY OOZING WILL CONTINUE BUT ALL VSS, NO SIGNS OF ACTIVE, GROSS BLEED. WILL CONTINUE TO MONITOR.
--- NOTE | 2021-04-09 04:51 | NUR ---
shift summary alert and oriented, able to make needs known. cooperative with plan of care. tele nsr. sats >95% on room air. voiding to urinal - good uop. no chest pain. hep gtt running - no changes made to gtt. r radial site now c/d/i (see previous note). been npo since midnight for pci today. vss. call light within reach, bed in lowest posiiton. will continue to monitor.
[2021-04-09 05:31] LABS: BASOPHILS ABSOLUTE AUTO 0.07 K/mm3 (0.00-0.23); BASOPHILS PERCENT AUTO 1 % (0-2); EOSINOPHILS ABSOLUTE AUTO 0.24 K/mm3 (0.00-0.68); EOSINOPHILS PERCENT AUTO 3 % (0-6); Hematocrit 40.4 % (37.0-53.0); Hemoglobin 14.1 g/dL (13.5-17.5); IMMATURE GRAN ABSOLUTE AUTO 0.04 K/mm3 (0.00-0.10); IMMATURE GRAN PERCENT AUTO 1 % (0-1); LYMPHOCYTES ABSOLUTE AUTO 1.95 K/mm3 (0.84-5.20); LYMPHOCYTES PERCENT AUTO 26 % (21-46); MONOCYTES ABSOLUTE AUTO 0.91 K/mm3 (0.16-1.47); MONOCYTES PERCENT AUTO 12 % (4-13); Mean Corpuscular HGB 34.4 pg (26.0-34.0); Mean Corpuscular HGB Conc 34.9 g/dL (31.5-36.5); Mean Corpuscular Volume 99 fL (80-100); Mean Platelet Volume 9.6 fL (9.1-12.4); NEUTROPHILS ABSOLUTE AUTO 4.41 K/mm3 (1.96-9.15); NEUTROPHILS PERCENT AUTO 58 % (41-73); Platelet Count 181 K/mm3 (150-400); RDW Coefficient Variation 12.2 % (11.7-14.2); RDW Standard Deviation 44.1 fL (35.1-46.3); White Blood Cell Count 7.62 K/mm3 (4.00-11.30)
[2021-04-09 06:16] LABS: LDL/HDL RATIO 3.5; Very Low Density Lipoprot Chol 22 mg/dL (6-32)
[2021-04-09 06:17] LABS: Anion Gap 8 mmol/L (6-16); Blood Urea Nitrogen 15 mg/dL (8-24); Bun/Creatinine Ratio 9.5 (12.0-20.0); CO2, Blood 22 mmol/L (21-32); Calcium, Blood 8.4 mg/dL (8.5-10.1); Chloride, Blood 108 mmol/L (98-108); Cholesterol 196 mg/dL (50-200); Creatinine, Blood 1.58 mg/dL (0.60-1.20); Glomerular Filtration Rate 44 (60-); Glucose, Blood 105 mg/dL (70-99); HDL Cholesterol 39 mg/dL (>39); Low Density Lipoprotein Chol 135 mg/dL (0-110); Sodium, Blood 138 mmol/L (136-145); Triglycerides 111 mg/dL (30-160)
--- NOTE | 2021-04-09 07:21 | NUR ---
Pt is awake and a/o x 4. He is very pleasant and agreeable to this morning's plan. VSS. Heparin gtt is running as ordered. He has updated his family. He was able to ambulate to the toilet and have a BM. He is able to make his needs known and calls for help appropriately.
--- NOTE | 2021-04-09 11:58 | NUR ---
UPDATE Pt returned from the heart center s/p stent placement. He has another right radial site which they placed 19 ml of air in. His IV fluids are infusing as ordered and the doctor has doscontinued the heparin gtt. He is sitting up in bed eating lunch. His daughter has been updated.
--- NOTE | 2021-04-09 16:49 | NUR ---
SHIFT SUMMARY Pt has been a/o x 4 with no complaints and he denies chest pain/SOB. This morning he went to the and received 3 stents and had a TR band to the right wrist which was recovered without incident. He now has a CDI dressing in place to his right wrist. Dr Pierce came to his room after the procedure and spoke with him about his options for the remaining stents and the plan is for him to go home tomorrow and then follow up out patient for the remaining interventions. His daughter, LISA has been updated multiple times throuhout the day and is aware of this latest plan. She will be the one picking him up tomorrow. His ordered bag of fluids infused post procedure and he is drinking PO fluids. EKG was completed post procedure as ordered. He has been using the urinal at the bedside since he has multiple cords/lines. He is able to make his needs known and calls for help as needed.
--- NOTE | 2021-04-10 05:18 | NUR ---
SHIFT SUMMARY PT ALERT AND ORIENTED X4. RESTING THROUGHOUT MOST OF NIGHT. ON RA MAINTAINING SATS OVER 95%. DENIES CP. HR SR 60'S AND 70'S. BP STABLE. RIGHT RADIAL SITE CLEAN DRY AND INTACT. INDEPENDENT FOR ADLS. IN BED SLEEPING WITH CALL ALARM AT SIDE. WILL CONTINUE TO MONITOR UNTIL REPORT GIVEN TO DAYSHIFT RN
[2021-04-10] MEDS ORDERED: ATOR40TA PO (09:59)
[2021-04-10] MEDS ORDERED: ASPI81CH PO (09:59)
[2021-04-10] MEDS ORDERED: CLOP75 PO (10:01)
[2021-04-10] MEDS ORDERED: LEVSOD25 PO (10:02)
[2021-04-10] MEDS ORDERED: METO25 PO (10:07)
--- NOTE | 2021-04-10 12:18 | NUR ---
DISCHARGE NOTE: PATIENT AND PATIENTS DAUGHTER WERE EDUCATED ON DISCHARGE INSTRUCTIONS. BOTH OF THEM VERBALIZED UNDERSTANDING OF INSTRUCTIONS. IV WAS TAKEN OUT AND WAS WNL. PERSCRIPTIONS WERE FAXED TO HIS PREFERRED PHARMACY AND ARE READY TO BE PICKED UP. PATIENTS RADIAL SITE HAD GAUZE AND TEGADERM THAT WAS C/D/I. PATIENT DENIED PAIN THROUGHOUT SHIFT. PATIENT IS A&OX4. VS ARE WNL AND IS ON RA. PATIENT WAS INDEP. IN THE ROOM. HE WAS VOIDING AND TOLERATING PO INTAKE. 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 DAUGHTER PICKED HIM UP AND IS DRIVING HIM HOME.
--- NOTE | 2021-04-10 15:10 | NUR ---
Per Dr. Cheung discharge appropriate on: 04/10/21. Patient does not oppose discharge. Patient is discharged home/residence. Transportation to residence provided by family (daughter Danni Stone). DME: none needed. Patient reminded to contact his PCP if his has any questions regarding medication management or social service needs and to go to urgent care if condition worsens. [facility] JACKI will contact patient to schedule hospital PCP follow up with Dr. Trenton Valderrama. Patient has strong family support. No barriers to discharge at this time.
== END 2021-04-10 12:01 | disposition home or self-care (01) | DRG 247 ==
LOC: ER 15:34 → MEDS 19:37 → PCU 04-08 11:46
PROVIDERS: Emergency Medicine; Internal Medicine; Internal Medicine Cardiovascular Disease; ADMIT Internal Medicine
PROC: B2111ZZ Fluoroscopy of Multiple Coronary Arteries using Low Osmolar Contrast (ICD-10-PCS; 2021-04-08)
PROC: 027136Z Dilation of Coronary Artery, Two Arteries with Three Drug-eluting Intraluminal Devices, Percutaneous Approach (ICD-10-PCS; principal; 2021-04-09)
PROC: B2111ZZ Fluoroscopy of Multiple Coronary Arteries using Low Osmolar Contrast (ICD-10-PCS; 2021-04-09)
DX: I21.4 Non-ST elevation (NSTEMI) myocardial infarction (principal); R56.9 Unspecified convulsions; E03.9 Hypothyroidism, unspecified; N18.30 Chronic kidney disease, stage 3 unspecified; Z88.0 Allergy status to penicillin; Z88.5 Allergy status to narcotic agent; N40.0 Benign prostatic hyperplasia without lower urinary tract symptoms; Z91.018 Allergy to other foods; I12.9 Hypertensive chronic kidney disease with stage 1 through stage 4 chronic kidney disease, or unspecified chronic kidney disease; M10.9 Gout, unspecified; Z98.890 Other specified postprocedural states
CPT/HCPCS: 36415; 71045; 76937; 80047; 80048; 80053; 80061; 83036; 84146; 84443; 84484; 85014; 85025; 85347; 85520; 85610; 85730; 93005; 93010; 93306; 93454; 99152; 99153; 99285-25; A9270; C1725; C1769; C1874; C1887; C1894; C9600; G0378; J1644; J2250; J2370; J3010; J3246; J7030; J7050; Q9967; U0004

== ENCOUNTER 2021-05-01 06:10 | Observation (INO) | payer MEDICARE, OTHER ==
[~2021-05-01] VITALS: Ht 177.8 cm; Wt 95.0 kg
[~2021-05-01 06:10] MED LIST changes: +ASPI81CH PO; +ATOR40TA PO; +CLOP75 PO; +Ketoconazole120 ML TOP; +METO25 PO; +OMEP20ER PO; +THYROID30 MG PO
--- NOTE | 2021-05-01 12:39 | NUR ---
TR BAND RECOVERY IS IN PROGRESS, 2ML AIR REMOVED, NO ACTIVE BLEEDING, RADIAL PULSES INTACT. SKIN PWD, GOOD CAP REFILL
--- NOTE | 2021-05-01 18:10 | NUR ---
SHIFT NOTE PT'S RT RADIAL RADIAL SITE IS FULLY RECOVERED, TEGADERM IN PLACE OVER SITE, SLIGHT BRUISING NOTED TO THE IMMEDIATE PUNCTURE SITE, NO ACTIVE BLEEDING FROM SITE. VSS. PT DENIES PAIN TO PUNCTUTE SITE, CP AND SOB, RESTING WELL IN BED WATCHING TV. PT A/O X4, ANSWERS QUESTIONS APPROPRIATELY. INDEPENDANT TO BATHROOM. SKIN PWD AND INTACT GOOD CAP REFILL NOTED. POST PROCEDURE ECHO WAS PERFORMED, THERE WILL BE A REPEAT ECHO IN THE AM. PT WITH GOOD APPETITE, DRINKING WELL. DENIES ANY ADDITIONAL NEEDS
[2021-05-02 04:00] LABS: Hematocrit 40.2 % (37.0-53.0); Mean Corpuscular HGB 34.3 pg (26.0-34.0); Mean Corpuscular HGB Conc 34.8 g/dL (31.5-36.5); Mean Corpuscular Volume 99 fL (80-100); Mean Platelet Volume 9.8 fL (9.1-12.4); Platelet Count 172 K/mm3 (150-400); RDW Coefficient Variation 11.9 % (11.7-14.2); Red Blood Cell Count 4.08 M/mm3 (4.30-5.90); White Blood Cell Count 7.28 K/mm3 (4.00-11.30)
[2021-05-02 04:24] LABS: Bun/Creatinine Ratio 11.7 (12.0-20.0); Calcium, Blood 8.5 mg/dL (8.5-10.1); Creatinine, Blood 1.37 mg/dL (0.60-1.20); Potassium, Blood 4.4 mmol/L (3.5-5.5)
--- NOTE | 2021-05-02 06:02 | NUR ---
SHIFT SUMMARY PATIENT FOUND TO BE A&0X4 AND UP IND IN ROOM. NO CP ALL SHIFT. VSS. ON RA. RIGHT RADIAL TR BAND SITE C/D/I. ARM BOARD IN PLACE. TOLERATING CARDIAC WITH OUT ISSUE. NO ISSUES VOIDING. STATES HES READY TO GO HOME. NO ACUTE CONCERN AT THIS TIME. WILL CONTINUE PLAN OF CARE UNTIL REPORT GIVEN TO LINDA RN.
--- NOTE | 2021-05-02 14:15 | NUR ---
PT'S IV REMOVED AND PRESSURE DRESSED, NO ACTIVE BLEEDING. PT EXPRESSED UNDERSTADNIG OF ALL DC TEACHING ASKED TO WAIT IN THE LOBBY FOR HIS RIDE, PT DENIES ANY FURTHER NEEDS OR QUESTIONS
== END 2021-05-02 14:20 | disposition home or self-care (01) ==
LOC: MHTC 06:10 → PCU 09:25 → MHTC 10:25 → PCU 10:25
PROVIDERS: Internal Medicine Interventional Cardiology; ADMIT Internal Medicine Cardiovascular Disease
DX: I25.10 Atherosclerotic heart disease of native coronary artery without angina pectoris (principal); I25.2 Old myocardial infarction; E78.5 Hyperlipidemia, unspecified; I12.9 Hypertensive chronic kidney disease with stage 1 through stage 4 chronic kidney disease, or unspecified chronic kidney disease; N18.9 Chronic kidney disease, unspecified; Z88.5 Allergy status to narcotic agent; Z88.0 Allergy status to penicillin; Z88.8 Allergy status to other drugs, medicaments and biological substances
CPT/HCPCS: 36415; 76937; 80048; 85027; 85347; 92921; 92978; 93308; 93321; 93454; 93571; 99152; 99153; A9270; C1725; C1753; C1769; C1874; C1887; C1894; C9600; J1644; J2250; J3010; J7030; J7050; Q9967

== ENCOUNTER 2021-07-09 17:50 | Emergency (ER) | payer MEDICARE, OTHER ==
[~2021-07-09] VITALS: Ht 177.8 cm; Wt 98.0 kg
[2021-07-09 19:28] LABS: Source, Urine Clean Catch
[2021-07-09 19:32] LABS: Appearance, Urine Clear (Clear); Bilirubin, Urine Neg (Neg); Blood, Urine 4+ (Neg); Color, Urine Yellow (P-Yellow); Glucose Qualitative, Urine Neg (Neg); Ketones, Urine Neg (Neg); Leukocyte Esterase, Urine Neg (Neg); Nitrite, Urine Neg (Neg); Protein, Urine 1+ (Neg); Specific Gravity, Urine 1.015 (1.003-1.022); Urobilinogen, Urine NORM (Normal)
[2021-07-09 19:35] LABS: BASOPHILS ABSOLUTE AUTO 0.02 K/mm3 (0.00-0.23); BASOPHILS PERCENT AUTO 0 % (0-2); EOSINOPHILS ABSOLUTE AUTO 0.02 K/mm3 (0.00-0.68); EOSINOPHILS PERCENT AUTO 0 % (0-6); Hematocrit 37.3 % (37.0-53.0); Hemoglobin 13.4 g/dL (13.5-17.5); IMMATURE GRAN ABSOLUTE AUTO 0.03 K/mm3 (0.00-0.10); IMMATURE GRAN PERCENT AUTO 0 % (0-1); LYMPHOCYTES ABSOLUTE AUTO 0.84 K/mm3 (0.84-5.20); LYMPHOCYTES PERCENT AUTO 8 % (21-46); MONOCYTES ABSOLUTE AUTO 0.41 K/mm3 (0.16-1.47); MONOCYTES PERCENT AUTO 4 % (4-13); Mean Corpuscular HGB 34.7 pg (26.0-34.0); Mean Corpuscular HGB Conc 35.9 g/dL (31.5-36.5); Mean Corpuscular Volume 97 fL (80-100); Mean Platelet Volume 9.7 fL (9.1-12.4); NEUTROPHILS ABSOLUTE AUTO 9.05 K/mm3 (1.96-9.15); NEUTROPHILS PERCENT AUTO 87 % (41-73); Platelet Count 194 K/mm3 (150-400); RDW Coefficient Variation 12.3 % (11.7-14.2); RDW Standard Deviation 43.7 fL (35.1-46.3); Red Blood Cell Count 3.86 M/mm3 (4.30-5.90); White Blood Cell Count 10.37 K/mm3 (4.00-11.30)
[2021-07-09 19:41] LABS: Bacteria Rare /hpf; Squamous Epithelial Cells Not Seen /hpf (Few); White Blood Cells, Urine 0-2 /hpf (0-5)
[2021-07-09 19:51] LABS: Albumin/Globulin Ratio 1.1 (0.8-1.8); Bun/Creatinine Ratio 10.1 (12.0-20.0); Calcium, Blood 8.6 mg/dL (8.5-10.1); Creatinine, Blood 1.58 mg/dL (0.60-1.20); Globulin, Blood 3.8 g/dL (2.2-4.0); Potassium, Blood 3.9 mmol/L (3.5-5.5); Total Protein, Blood 7.8 g/dL (6.4-8.2)
[2021-07-09 20:23] LABS: Influenza A, PCR NEGATIVE (NEGATIVE); Influenza B, PCR NEGATIVE (NEGATIVE); Resp Syncytial Virus, PCR NEGATIVE (NEGATIVE); SARS-Cov-2 (COVID-19) PCR, MMC NEGATIVE (NEGATIVE)
[2021-07-09] MEDS ORDERED: LEVFLO500 PO (21:16)
== END 2021-07-09 22:13 | disposition home or self-care (01) ==
LOC: ER 17:50
PROVIDERS: Emergency Medicine
DX: J20.9 Acute bronchitis, unspecified (principal); R50.9 Fever, unspecified; E03.9 Hypothyroidism, unspecified; I12.9 Hypertensive chronic kidney disease with stage 1 through stage 4 chronic kidney disease, or unspecified chronic kidney disease; N18.9 Chronic kidney disease, unspecified; I25.10 Atherosclerotic heart disease of native coronary artery without angina pectoris; K21.9 Gastro-esophageal reflux disease without esophagitis; Z88.5 Allergy status to narcotic agent; Z88.0 Allergy status to penicillin; Z88.8 Allergy status to other drugs, medicaments and biological substances; Z91.018 Allergy to other foods; Z79.899 Other long term (current) drug therapy; Z20.822 Contact with and (suspected) exposure to COVID-19
CPT/HCPCS: 0241U; 36415; 71045; 80053; 81001; 83605; 84145; 84484; 85025; A9270; J2405; J7030

== ENCOUNTER → 2023-12-04 | Outpatient (CLI) | payer OTHER ==
[~2023-12-04] MED LIST changes: +LEVE500 PO; +LEVFLO500 PO; +MIRALAX17 GM PO
== END ==
LOC: LAB 17:06 → LAB SHORT 17:06
DX: J02.9 Acute pharyngitis, unspecified (principal)
CPT/HCPCS: 87081

== ENCOUNTER → 2024-09-13 | Outpatient (CLI) | payer OTHER ==
[2024-09-13 19:47] LABS: Creatinine, Urine Random 241.0 mg/dL (27.00-270.00); Microalb/Creat Ratio UR, Rand 27.178 mg/g (0.000-30.000); Microalbumin, Random Urine 65.5 mg/L (0.000-20.000)
== END ==
LOC: LAB SHORT 17:30 → LAB 17:30
PROVIDERS: Physician Assistant
DX: E11.22 Type 2 diabetes mellitus with diabetic chronic kidney disease (principal); N18.31 Chronic kidney disease, stage 3a
CPT/HCPCS: 82043; 82570

== ENCOUNTER → 2025-02-05 | Outpatient (CLI) | payer OTHER | END | disposition home or self-care (01) | LOC: LAB 19:26 → LAB SHORT 19:26 | DX: N39.0 Urinary tract infection, site not specified (principal); R31.9 Hematuria, unspecified | CPT/HCPCS: 87077; 87086; 87186 ==